=== PATIENT | male | born 1980 | race Caucasian/White ===

== ENCOUNTER 2018-09-02 13:53 | Emergency (ER) | payer BC, OTHER ==
[~2018-09-02] VITALS: Ht 177.8 cm; Wt 124.7 kg
[2018-09-02 14:56] LABS: BASOPHILS % 0.5 % (0.0-1.0); EOSINOPHILS # (AUTO) 0.1 (0.0-0.4); EOSINOPHILS % 0.8 % (0.0-6.0); HEMATOCRIT 47.4 % (38.2-49.6); HEMOGLOBIN 15.7 g/dL (14.0-18.0); LYMPHOCYTES # (AUTO) 2.2 (1.0-3.2); LYMPHOCYTES % 25.8 % (18.0-39.1); MEAN CORPUSCULAR HEMOGLOBIN 30.7 pg (28-32); MEAN CORPUSCULAR HGB CONC 33.1 g/dL (31-35); MEAN CORPUSCULAR VOLUME 92.6 fL (81-99); MONOCYTES # (AUTO) 0.5 (0.2-0.8); MONOCYTES % 6.3 % (4.4-11.3); NEUTROPHILS # (AUTO) 5.7 (2.1-6.9); NEUTROPHILS % 66.3 % (38.7-80.0); PLATELET COUNT 225 x10e3/uL (140-360); RED BLOOD COUNT 5.12 x10e6/uL (4.3-5.7); RED CELL DISTRIBUTION WIDTH 13.4 % (11.7-14.4)
[2018-09-02 15:01] LABS: BILIRUBIN,URINE NEGATIVE (NEGATIVE); CLARITY,URINE SL CLOUDY (CLEAR); COLOR,URINE YELLOW (YELLOW); KETONES,URINE NEGATIVE (NEGATIVE); LEUKOCYTE ESTERASE ,URINE NEGATIVE (NEGATIVE); NITRITE,URINE NEGATIVE (NEGATIVE); PROTEIN,URINE DIPSTICK NEGATIVE (NEGATIVE); URINE UROBILINOGEN 0.2 mg/dL (0.2 - 1)
[2018-09-02 15:14] LABS: ALANINE AMINOTRANSFERASE 48 IU/L (0-55); ALBUMIN 3.4 g/dL (3.5-5.0); ALBUMIN/GLOBULIN RATIO 1.1 (0.8-2.0); ALKALINE PHOSPHATASE 51 IU/L (40-150); ANION GAP 11.8 mmol/L (8-16); BLOOD UREA NITROGEN 9 mg/dL (7-26); BUN/CREATININE RATIO 10 (6-25); CALCIUM 8.9 mg/dL (8.4-10.2); CARBON DIOXIDE 27 mmol/L (22-29); CHLORIDE 107 mmol/L (98-107); CHOL/HDL RATIO 3.7 (3.9-4.7); CHOLESTEROL 138 MD/DL (0-199); CREATININE, SERUM 0.88 mg/dL (0.72-1.25); EST GLOMERULAR FILTRATION RATE > 60 ML/MIN (60-); GLUCOSE 117 mg/dL (74-118); HDL CHOLESTEROL 37 MG/DL (40-60); LDL CHOLESTEROL 70 MG/DL (60-130); POTASSIUM 3.8 mmol/L (3.5-5.1); SODIUM 142 mmol/L (136-145); TRIGLYCERIDES 156 MG/DL (0-149)
--- NOTE | 2018-09-02 15:33 | Diagnostic Imaging Report ---
EXAMINATION: CHEST 2 VIEWS INDICATION: Chest pain. COMPARISON: None FINDINGS: TUBES and LINES: None. LUNGS: Lungs are moderately inflated. Lungs are clear. There is no evidence of pneumonia or pulmonary edema. PLEURA: No pleural effusion or pneumothorax. HEART AND MEDIASTINUM: The cardiomediastinal silhouette is unremarkable. BONES AND SOFT TISSUES: No acute osseous abnormality. UPPER ABDOMEN: No free air under the diaphragm. IMPRESSION: No acute radiographic abnormality. Signed by: Dr. Romeo Sanchez MD on 09/02/2018 3:30 PM
[2018-09-02 17:00] VITALS: BP 126/93
== END 2018-09-02 17:06 | disposition home or self-care (01) ==
LOC: ER 13:53
DX: R07.89 Other chest pain (principal); E78.1 Pure hyperglyceridemia
CPT/HCPCS: 36415; 71046; 80053; 80061; 81001; 83880; 84484; 85025; 93005; 99284

== ENCOUNTER → 2018-09-23 | Outpatient (CLI) | payer OTHER ==
[~2018-09-23] MED LIST: IOPAMIDOL 370 MG/ML 200 ML INFUS..BTL INJ ONE; SODIUM CHLORIDE 0.9% 50ML 50 ML ONE
--- NOTE | 2018-09-23 12:14 | Diagnostic Imaging Report ---
EXAMINATION: CT of the chest with contrast, PE protocol. TECHNIQUE: Spiral CT images of the chest were performed from the lung apices through the level of the adrenal glands after the IV administration of 100 cc [id number]-[id number]. Thin section reconstructions were obtained with special concentration on the pulmonary arteries. COMPARISON: Chest radiograph 09/02/2018 CLINICAL HISTORY:Shortness of breath, chest pain DISCUSSION: Vasculature: The main pulmonary artery, right and left pulmonary arteries, and their visualized lobar and segmental branches are patent, without filling defect. The main pulmonary artery is of normal caliber. No ectasia or aneurysmal dilatation of the thoracic aorta. Great vessel origins are normal in caliber and configuration. Lungs: Minimal groundglass opacity in the dependent portions of the lower lobes with scattered foci of air trapping. No airspace consolidation, bronchiectasis, or gross fibrotic change. Airways: Trachea, mainstem bronchi, and central lobar and segmental bronchi are patent. Pleura: <There is no evidence of pleural effusion or pneumothorax.> Heart and mediastinum: Heart size is normal. Prominent epicardial fat. Thyroid gland is normal. No axillary, hilar, or mediastinal lymphadenopathy. Abdomen: Visualized portions of the liver, spleen, pancreas, adrenals, and kidneys are unremarkable. Bones and soft tissues: <The thoracic skeleton is normal for age. The soft tissues are unremarkable.> IMPRESSION: No pulmonary embolus to the level of the segmental branch pulmonary arteries. Scattered foci of groundglass opacity with air trapping may be seen in the setting of reactive airways disease. Signed by: Dr. Chano Boudreaux M.D. on 09/23/2018 12:11 PM
== END ==
LOC: CT 11:01
DX: R07.9 Chest pain, unspecified (principal); R06.02 Shortness of breath
CPT/HCPCS: 71260; Q9967